=== PATIENT | female | born 1985 | race Caucasian/White ===

== ENCOUNTER 2018-03-29 22:39 | Emergency (ER) | payer BC ==
[~2018-03-29] VITALS: Ht 160 cm; Wt 72.6 kg
[2018-03-29 22:43] VITALS: Ht 160 cm; Wt 72.6 kg
[2018-03-29 23:20] LABS: BASOPHIL % 0.6 % (0-2); PLATELET COUNT 326 x10^3mcL (130-400)
[2018-03-29 23:32] LABS: CARBON DIOXIDE 25.2 mmol/L (21-32); CHLORIDE SERUM 104 mmol/L (98-107); CREATININE SERUM 0.7 mg/dL (0.6-1.0); GFR1 > 60 mL/min; GLUCOSE SERUM 94 mg/dL (74-106); POTASSIUM SERUM 3.6 mmol/L (3.5-5.1); SODIUM SERUM 139 mmol/L (136-145)
[2018-03-29 23:37] LABS: ALBUMIN 3.9 g/dL (3.4-5.0); ALKALINE PHOSPHATASE 83 U/L (46-116); ALT/SGPT 24 U/L (14-59); AST/SGOT 14 U/L (15-37); BILIRUBIN TOTAL 1.2 mg/dL (0.20-1.00); TOTAL PROTEIN, SERUM 7.2 g/dL (6.4-8.2)
[2018-03-30 01:09] VITALS: BP 114/75
== END 2018-03-30 01:09 | disposition home or self-care (01) ==
LOC: ED 22:39
PROVIDERS: Emergency Medicine
DX: T39.8X1A Poisoning by other nonopioid analgesics and antipyretics, not elsewhere classified, accidental (unintentional), initial encounter (principal); Y92.89 Other specified places as the place of occurrence of the external cause; G43.909 Migraine, unspecified, not intractable, without status migrainosus; Z90.49 Acquired absence of other specified parts of digestive tract
CPT/HCPCS: 83880; J1885